=== PATIENT | male | born 1950 | race Caucasian/White ===

== ENCOUNTER → 2020-10-07 | Outpatient (CLI) | payer OTHER ==
[~2020-10-07] MED LIST: ASA81BEC PO; ATORVASTATIN CA80 MG PO; B12INJ IM; COSOPT OCUMETER10 M1 OPHTHALMIC; HYDROCHLOROTHIA25 M1 PO; IRBESARTAN300 MG PO; LATANOPROST 0.2.5 ML OPHTHALMIC; NITROSTAT0.4 M1 SUBLING; SUPER THERAVIT1 EACH PO
== END ==
LOC: LAB 11:01
PROVIDERS: ATTEND Orthopaedic Surgery
DX: Z01.812 Encounter for preprocedural laboratory examination (principal); Z20.822 Contact with and (suspected) exposure to COVID-19

== ENCOUNTER 2020-10-13 10:45 | Observation (INO) | payer OTHER ==
[2020-10-07 11:08] LABS: URINE BILIRUBIN NEGATIVE (Negative); URINE BLOOD NEGATIVE (Negative); URINE CLARITY CLEAR; URINE COLOR YELLOW; URINE GLUCOSE-RANDOM* NEGATIVE (Negative); URINE KETONES NEGATIVE (Negative); URINE LEUKOCYTES-REFLEX NEGATIVE (Negative); URINE NITRITE-REFLEX NEGATIVE (Negative); URINE PROTEIN (DIPSTICK) NEGATIVE (Negative); URINE UROBILINOGEN 0.2 E.U./dl (0.2-1.0)
[2020-10-07 11:09] LABS: HEMATOCRIT 41.6 % (42.0-52.0); HEMOGLOBIN 13.8 gm/dL (14.0-18.0); MCH 28.7 pg (26.0-34.0); MCHC 33.3 g/dL (28.0-37.0); MCV 86.2 fL (80.0-100.0); RBC 4.83 mil/uL (4.50-6.00); RDW 15.7 % (10.5-14.5); WBC 6.3 thou/uL (4.0-11.0)
[2020-10-07 11:16] LABS: ALBUMIN 4.2 g/dL (3.4-5.0); CALCIUM 8.7 mg/dL (8.5-10.1); CREATININE 0.8 mg/dL (0.7-1.3); POTASSIUM 4.3 mmol/L (3.5-5.1)
[2020-10-07 11:32] LABS: INR 1.1; PROTIME 11.4 Seconds (9.3-11.4)
[2020-10-13] VITALS (8 sets, daily range): BP systolic 123–151; BP diastolic 76–86
[~2020-10-13] VITALS: Ht 185.4 cm; Wt 95.7 kg
--- NOTE | ~2020-10-13 | O ---
[facility] [place] [address] OPERATIVE REPORT Name: GINI TREVIZO Room #: 440-P [facility] Kevin#: [id number] Admission: 10/13/20 Attend Phys: Willian Carter MD Discharge: Date of : 54 Report #: [id number] THIS REPORT FOR: cc: Tatiana Cortés Pamela D. DO Abraham,Willian Thayer MD ~ DATE OF SERVICE: 10/13/2020 PREOPERATIVE DIAGNOSIS: Right knee osteoarthritis. POSTOPERATIVE DIAGNOSIS: Right knee osteoarthritis. PROCEDURE: Right total knee arthroplasty using Navio robotic family service assistant. SURGEON: Willian Carter MD. BUSINESS PROCESS MODELER: Patricia Schwartz PA-C. INDICATIONS FOR BUSINESS PROCESS MODELER: Throughout the case, extensive retraction and manipulation of the knee was required. This was afforded to me by my family service assistant. ANESTHESIA: LMA with adductor canal block. IMPLANTS: Trevizo and Nephew size 7 Journey II BCS cobalt chrome femur, a size 7 tibia, size 35 patella, and a size 9 polyethylene. TOURNIQUET TIME: 53 minutes. ESTIMATED BLOOD LOSS: 25 mL. COMPLICATIONS: None. SPECIMENS: None. CONDITION UPON LEAVING THE OPERATING ROOM: Stable. INDICATIONS FOR PROCEDURE: The patient is a 69-year-old gentleman with severe right knee osteoarthritis. He had failed conservative measures for this; and after discussion with him, he elected for right total knee arthroplasty. DESCRIPTION OF PROCEDURE: Risks, benefits, alternatives, and complications were discussed in detail with the patient including, but not limited to, risk of anesthesia, risk of damage to nerves, arteries, blood vessels, risk for infection, bleeding, risk for continued knee pain and need for reoperation. Informed consent was obtained from the patient. Right knee was appropriately [address] [address] OPERATIVE REPORT Name: GINI TREVIZO Room #: 440-P [facility] Asad Brown#: [id number] Admission: 10/13/20 Attend Phys: Willian Carter MD Discharge: Date of : 54 Report #: [id number] marked in the preoperative holding area. IV Ancef was given for preoperative antibiotics. He was brought to the operating room and placed in the supine position on the operating room table. LMA anesthesia was induced without complication. Tourniquet was placed on the right thigh. Right lower extremity was prepped and draped in normal sterile fashion. Timeout was performed properly identifying the patient and procedure as well as the instrumentation and implants. All in the operating room were in agreement. Right lower extremity was exsanguinated, tourniquet was inflated. Tourniquet time was 53 minutes. Standard midline approach to the knee was made with 10 blade through the skin. Dissection was taken down sharply to the fascia and deep flaps were developed medially and laterally. Fresh 10 blade was used to make a medial parapatellar arthrotomy and the knee was inspected. There was severe medial compartment osteoarthritis with moderate lateral and patellofemoral osteoarthritis. ACL and PCL were removed sharply. Reference pins were placed in the femur and the tibia. The knee was then digitally mapped using the Nasseo robotic system. Intraoperative plan was made and we sized the size 7 femur with a size 7 tibia and a 10 spacer. After acceptance of the intraoperative plan, the distal femoral cut was made with Navio bur. Distal femoral cutting block was pinned in place and chamfer cuts were made. Attention was turned to the tibia. Remainder of the menisci were removed with Bovie cautery. Tibial resection guide was pinned in place using the Navio for placement. Tibial resection was made. Flexion and extension gaps were checked and found to have good balance in flexion and extension, both medially and laterally. Tibia was sized, found to be a size 7. A size 7 tibial trial was placed, pinned and punched. A size 7 femoral trial was placed and box cut was made. This was then trialed with size 9 polyethylene. Size 9 polyethylene demonstrated 1-2 mm of laxity medially and laterally throughout range of motion of the knee. 9 mm of bone was resected from the posterior surface of the patella and a size 35 patellar trial button was placed. Knee was taken through range of motion, found to be stable, found to have good patellar tracking. Trial components were removed. Bony ends were thoroughly irrigated with normal saline. A final size 7 tibia, size 7 Journey II BCS cobalt chrome femur, and a size 35 patella were cemented in place using standard cementation techniques. While the cement cured, a periarticular injection consisting of morphine, ropivacaine, epinephrine, and Toradol was placed around the knee joint capsule. After the cement cured, the tourniquet was deflated. Hemostasis was obtained with Bovie cautery. A final size 9 polyethylene was placed. A gram of vancomycin was placed deep in the joint. The fascia was closed with 0 Vicryl, skin was closed with 2-0 Vicryl, 3-0 Monocryl, Dermabond and a KENAN dressing was applied. The patient tolerated this procedure well and went to recovery room under care of anesthesia postoperatively. By: [id number] Willian Carter MD /robel
--- NOTE | 2020-10-13 16:58 | NUR ---
Assumed pt care this am. Pt is alert & oriented x4. Pt has IV site on L hand 20 gauge. Pt has R navio total knee replacement today. Pt rated pain 5/10. Pt has r knee ronald dressing, brandy hoses, and scd. Pt at the bedside. Completed admission checklist today. Pt on the bed sleeping, bed on the lowest position, side rails up, call light within reach. Will continue to monitor pt.
[2020-10-14 04:03] VITALS: BP 119/73
--- NOTE | 2020-10-14 04:09 | NUR ---
RECIEVED CARE OF THIS PATIENT AT 1900. PATIENT ALERT AND ORIENTED X4. REMAINS ON BEDREST D/O THE BLOCK HE RECEIVED FOR SURGERY. UNABLE TO MOVE LEG VERY MUCH. C/O MILD PAIN. SCHEDULED PAIN MED GIVEN. R KNEE HAS KNEAN DRESSING. TAMIKO LOWER EXT HAS TEDS AND SCD'S ON. HAS A POLAR ICE ON R LOWER EXT. IV WAS DISLODGED AND CAME OUT ON BED COVERS, RELPACED IN L FOREARM W/O DIFFICULTY. SLEPT MOST OF NIGHT.
[2020-10-14 05:49] LABS: HEMATOCRIT 34.2 % (42.0-52.0); HEMOGLOBIN 11.6 gm/dL (14.0-18.0); MCH 29.6 pg (26.0-34.0); RBC 3.93 mil/uL (4.50-6.00); RDW 15.5 % (10.5-14.5)
[2020-10-14 08:02] VITALS: BP 108/70
--- NOTE | 2020-10-14 08:17 | NUR ---
assessment: CM REVIEWED CHART AND SPOKE WITH PATIENT. PT IS ALERT AND ORIENTED X4. PT IS S/P RIGHT TOTAL KNEE ARTHROPLASTY. PT REPORTS THAT HE LIVES IN HOUSE WITH HIS AND MOTHER IN [place]. PT REPORTS HAVING 3 STEPS WITH A HANDRAIL TO ENTER THE HOME AND ALL HIS NEEDS ARE ON THE MAIN LEVEL. PT REPORTS HE DOES HAVE A BASEMENT BUT DOES NOT GO DOWN THERE FOR ANYTHING. PT REPORTS THAT HE HAS A CANE, WALKER, AND CRUTCHES AT HOME IF NEEDED. PT REPORTS THEY JUST RECENTLY HAD THEIR BATHROOM REMODELED AND HAS A WALK IN SHOWER WITH [employer] AND BUILT IN SEAT. PT REPORTS HE HAS NO HX OF HH OR SNF. PT REPORTS HE HAS OUTPATIENT THERAPY ARRANGED IN [place] TO BEGIN TOMORROW. CM DISCUSSED ROLE. PT DOES NOT ANTICIPATE HAVING ANY NEEDS FROM CM. PT EAGER TO WORK WITH THERAPY AND HOPEFUL HE CAN DISCHARGE HOME TODAY. CM WILL CONTINUE TO FOLLOW TO ASSIST NEEDED.
[2020-10-14 15:08] VITALS: BP 108/70
--- NOTE | 2020-10-14 17:04 | NUR ---
A/O, calm and cooperative; vss, afebrile. discharge education given and voiced that he understood.
== END 2020-10-14 16:36 | disposition home or self-care (01) ==
LOC: OR 10:45 → 4S 15:27 → OR 16:20 → 4S 10-14 16:36
PROVIDERS: ADMIT Orthopaedic Surgery; ATTEND Orthopaedic Surgery
DX: M17.11 Unilateral primary osteoarthritis, right knee (principal); Z79.899 Other long term (current) drug therapy
CPT/HCPCS: 27447; S2900; 50010; 50101; 50415; 50954; 51130; 51225; 51320; 53000; 53078; 54118; 56527; 56528; 57095; 57103; 57110; 57127; 57180; 58239; 62110; 62900; 70005